=== PATIENT | female | born 1955 | race Caucasian/White ===

== ENCOUNTER 2017-11-01 14:48 | Emergency (ER) | payer SELFPAY ==
[~2017-11-01] VITALS: Ht 162.6 cm; Wt 60.0 kg
[2017-11-01] MEDS ORDERED: METF500T4 PO (14:53)
[2017-11-01] MEDS ORDERED: ACETAMINOPHEN 500MG TABLET PO ONE (18:45)
[2017-11-01] MEDS ORDERED: TETANUS, DIPHTHERIA, PERTUSSIS VAC/PF 0.5ML (>7YR OLD) IM ONE (18:45)
[2017-11-01] MEDS ORDERED: BACITRACIN ZINC OINT UDPKT TOP ONE (20:00)
[2017-11-01 21:25] VITALS: BP 121/76
== END 2017-11-01 21:25 | disposition home or self-care (01) ==
LOC: ER 15:01
DX: S50.11XA Contusion of right forearm, initial encounter (principal); S50.811A Abrasion of right forearm, initial encounter; E11.9 Type 2 diabetes mellitus without complications; W01.0XXA Fall on same level from slipping, tripping and stumbling without subsequent striking against object, initial encounter; Y93.89 Activity, other specified; Y92.89 Other specified places as the place of occurrence of the external cause; Y99.8 Other external cause status
CPT/HCPCS: 73080; 73090; 73110; 82962; 90471; 90715; 99284; A4565